=== PATIENT | male | born 1970 | race Caucasian/White ===

== ENCOUNTER 2022-04-24 17:07 | Emergency (ER) | payer OTHER, BC ==
[~2022-04-24] VITALS: Ht 190.5 cm; Wt 128.8 kg
[2022-04-24] MEDS ORDERED: LIPITOR10 MG PO (17:52)
[2022-04-24] MEDS ORDERED: METOPROLOL SUCC25 MG (17:52)
== END 2022-04-24 20:59 | disposition home or self-care (01) ==
LOC: ED 17:07
DX: B34.9 Viral infection, unspecified (principal); I10 Essential (primary) hypertension; Z79.899 Other long term (current) drug therapy
CPT/HCPCS: 36415; 80053; 83690; 83735; 85025; 96374; 99284-25; J1885; J7030